=== PATIENT | male | born 1990 | race Caucasian/White ===

== ENCOUNTER 2020-04-11 20:29 | Emergency (ER) | payer BC, OTHER ==
--- NOTE | 2020-04-11 20:58 | ER Document Report ---
ED Medical Screen (RME) - General Chief Complaint: Shortness Of Breath Stated Complaint: SHORTNESS OF BREATH,CHEST PAIN Time Seen by Provider: 04/11/20 20:48 - HPI Notes: 04/11/20 20:56 29-year-old male presents to the emergency room with complaints of chest pain or shortness of breath that started approximately an hour and a half ago. Reports pain is substernal and to his left chest, reports he has had tightness for the last hour and a half but the sharp pain has lasted approximately 10 minutes and occurs intermittently. He was diagnosed with cardiomyopathy a month ago by the [place] non-smoker, no history of asthma. Denies any cardiac history with his mother or father. He reports it hurts to take a deep breath in. Has not tried any [id number] medications. Reports pain at rest. Denies any radiation of pain. Denies any fevers or chills. Denies any trauma to his chest. Patient denies being a smoker. Patient states he is not having any chest stabbing right now just experiencing the tightness in his chest I have greeted and performed a rapid initial assessment of this patient. A comprehensive ED assessment and evaluation of the patient, analysis of test results and completion of the medical decision making process will be conducted by additional ED providers. PHYSICAL EXAMINATION: GENERAL: Well-appearing, well-nourished and in no acute distress. HEAD: Atraumatic, normocephalic. EYES: Pupils equal round extraocular movements intact, conjunctiva are normal. NECK: Normal range of motion CV: s1, s2 regular. unable to reproduce chest pain LUNGS: No respiratory distress Musculoskeletal: Normal range of motion NEUROLOGICAL: Normal speech, normal gait. SKIN: Warm, Dry, normal turgor, no rashes or lesions noted. - Related Data Allergies/Adverse Reactions: No Known Allergies Allergy (Unverified 04/11/20 20:54) Physical Exam - Vital signs Vitals: Temp Pulse BP Pulse Ox 98.3 F 75 152/80 H 98 04/11/20 20:44 04/11/20 20:44 04/11/20 20:44 04/11/20 20:44 Course - Vital Signs Vital signs: Temp Pulse Resp BP Pulse Ox 98.3 F 75 152/80 H 98 04/11/20 20:44 04/11/20 20:44 04/11/20 20:44 04/11/20 20:44
[2020-04-11 21:27] LABS: ABSOLUTE BASOPHILS # (AUTO) 0.1 10^3/uL (0.0-0.2); ABSOLUTE EOSINOPHILS # (AUTO) 0.3 10^3/uL (0.0-0.6); ABSOLUTE LYMPHOCYTES (AUTO) 2.2 10^3/uL (0.5-4.7); ABSOLUTE MONOCYTES (AUTO) 0.7 10^3/uL (0.1-1.4); ABSOLUTE NEUT (AUTO) 4.9 10^3/uL (1.7-8.2); BASOPHILS % (AUTO) 0.9 % (0-2); EOSINOPHILS % (AUTO) 3.1 % (0-6); HEMATOCRIT 42.8 % (37.9-51.0); LYMPHOCYTES % (AUTO) 27.3 % (13-45); MEAN CORPUSCULAR HEMOGLOBIN 30.7 pg (27.0-33.4); MEAN CORPUSCULAR VOLUME 88 fl (80-97); MONOCYTES % (AUTO) 8.7 % (3-13); PLATELET COUNT 237 10^3/uL (150-450); RED BLOOD COUNT 4.87 10^6/uL (4.35-5.55); RED CELL DISTRIBUTION WIDTH 13.4 % (11.5-14.0); TOTAL CELLS COUNTED % (AUTO) 100 %; WHITE BLOOD COUNT 8.2 10^3/uL (4.0-10.5)
--- NOTE | 2020-04-11 21:32 | RADIOLOGY REPORT (SQ) ---
EXAM DESCRIPTION: XR KNEE 4 OR MORE VIEWS COMPLETED DATE/TME: 04/11/2020 20:21 CLINICAL HISTORY: 29 years Male chest pain, sob COMPARISON: None. FINDINGS: The cardiomediastinal silhouette appears unremarkable. No consolidating infiltrates or pleural effusions. No pneumothorax. IMPRESSION: No acute abnormality is identified. CLINICAL HISTORY: 29 years, Male, chest pain, sob COMPARISON: None. NUMBER OF VIEWS: TECHNIQUE: LIMITATIONS: None. FINDINGS: IMPRESSION: copyright 2010 [employer]- All Rights Reserved
[2020-04-11 21:44] LABS: ALBUMIN 4.8 g/dL (3.5-5.0); ALKALINE PHOSPHATASE 76 U/L (38-126); ANION GAP 8 (5-19); ASPARTATE AMINO TRANSFERASE 38 U/L (17-59); BILIRUBIN,DIRECT 0.2 mg/dL (0.0-0.4); BILIRUBIN,TOTAL 0.4 mg/dL (0.2-1.3); BLOOD UREA NITROGEN 20 mg/dL (7-20); CALCIUM 10.2 mg/dL (8.4-10.2); CARBON DIOXIDE 29 mmol/L (22-30); CHLORIDE 101 mmol/L (98-107); CREATINE KINASE 94 U/L (55-170); GLUCOSE 89 mg/dL (75-110); POTASSIUM 5.3 mmol/L (3.6-5.0); TOTAL PROTEIN 7.1 g/dL (6.3-8.2)
[2020-04-11 21:55] LABS: CREATINE KINASE MB 0.94 ng/mL (<4.55)
[2020-04-11 21:56] LABS: TROPONIN I < 0.012 ng/mL
--- NOTE | 2020-04-12 00:56 | EKG REPORT ---
SEVERITY:- NORMAL ECG - SINUS RHYTHM ST ELEV, PROBABLE NORMAL EARLY REPOL PATTERN : Confirmed by: Jace Newman 12-Apr-2020 00:55:46
--- NOTE | 2020-04-12 03:33 | ER Document Report ---
ED General - General Chief Complaint: Shortness Of Breath Stated Complaint: SHORTNESS OF BREATH,CHEST PAIN Time Seen by Provider: 04/11/20 20:48 Primary Care Provider: ANA BARROS MD [ACTIVE STAFF] - Follow up as needed Mode of Arrival: Ambulatory Information source: Patient Notes: Patient is an otherwise healthy 29-year-old male presenting to the emergency department with complaints of chest pain with shortness of breath. Patient reports symptoms started about an hour and a half prior to arrival. States he started getting sharp stabbing chest pains to the middle of his chest and left chest. He states this was also accompanied by a pressure on his chest. He reports at one point he became diaphoretic. He denied any nausea or vomiting. He reports associated shortness of breath. He reports recent diagnosis of cardiomyopathy but states he has not had any advice or follow-up on this. - Related Data Allergies/Adverse Reactions: No Known Allergies Allergy (Unverified 04/11/20 20:54) Home Medications: motrin Past Medical History - General Information source: Patient - Social History Smoking Status: Former Smoker - quit few days ago Chew tobacco use (# tins/day): No Frequency of alcohol use: Occasional Drug Abuse: None Family History: None Patient has homicidal ideation: No - Past Medical History Cardiac Medical History: Reports: Other - cardiomyopathy Review of Systems - Review of Systems Constitutional: See HPI EENT: No symptoms reported Cardiovascular: See HPI Respiratory: See HPI Gastrointestinal: No symptoms reported Genitourinary: No symptoms reported Male Genitourinary: No symptoms reported Musculoskeletal: No symptoms reported Skin: No symptoms reported Hematologic/Lymphatic: No symptoms reported Neurological/Psychological: No symptoms reported Physical Exam - Vital signs Vitals: Temp Pulse BP Pulse Ox 98.3 F 75 152/80 H 98 04/11/20 20:44 04/11/20 20:44 04/11/20 20:44 04/11/20 20:44 - Notes Notes: PHYSICAL EXAMINATION: GENERAL: Well-appearing, well-nourished and in no acute distress. HEAD: Atraumatic, normocephalic. EYES: Pupils equal round and reactive to light, extraocular movements intact, sclera anicteric, conjunctiva are normal. ENT: Nares patent, oropharynx clear without exudates. Moist mucous membranes. NECK: Normal range of motion, supple without lymphadenopathy LUNGS: Breath sounds clear to auscultation bilaterally and equal. No wheezes rales or rhonchi. HEART: Regular rate and rhythm without murmurs ABDOMEN: Soft, nontender, nondistended abdomen. No guarding, no rebound. No masses appreciated. Musculoskeletal: Normal range of motion, no pitting or edema. No cyanosis. NEUROLOGICAL: Cranial nerves grossly intact. Normal speech, normal gait. Normal sensory, motor exams PSYCH: Normal mood, normal affect. SKIN: Warm, Dry, normal turgor, no rashes or lesions noted. Course - Re-evaluation Re-evalutation: Presentation of chest pain in an otherwise well appearing patient. Low clinical suspicion for ACS given clinical history, exam, EKG without ST elevations or depressions in contigupus leads, and negative initial troponin. HEART score less than or equal to 3. PE also seems unlikely given clinical history, absence of tachycardia or dyspnea. Patient is PERC criteria negative. CXR without evidence of pneumothorax or pneumonia. No widened mediastinum. Aortic dissection also seems unlikely given history, symmetric pulses, CXR, and vitals. HEART Score: History 1 ECG 1 Age 0 Risk Factors 1 Troponin 0 Total: 3 Chest pain in a patient without evidence of cardiac or other serious etiology on workup today. I discussed with patient that, based on their age, risk factors and emergency department testing today, the likelihood that their symptoms are related to a heart attack is very low (estimated risk of heart attack or over the next 30 days of less than 1%). The patient demonstrates decision making capacity and has verbalized an understanding of these risks to me. Based on this, the patient has chosen to follow-up as an outpatient. I would like him to follow-up with Dr. Barros, our on-call accredited legal secretary due to the patient reporting a recent echocardiogram that showed cardiomyopathy. He states this [facility] the [facility] request. He states this was approximately 6 weeks ago and he has been getting the run around and has not been able to follow-up with a accredited legal secretary. Patient does not know any additional specifics regarding the diagnosis of cardiomyopathy on the echocardiogram. 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 He is in the process of getting his disability rating from the [facility] and the echocardiogram was apparently part of this work-up. Usual chest pain return precautions reviewed. The patient states understanding and agreement with this plan. 04/12/20 03:32 Repeat troponin was also negative. We also did a repeat EKG which was no acute change from initial EKG. Patient is chest pain-free. Spoke with on-call accredited legal secretary, Dr. Barros. He agrees to see patient on outpatient basis. - Vital Signs Vital signs: Temp Pulse Resp BP Pulse Ox 98.3 F 75 18 126/78 H 99 04/11/20 20:44 04/11/20 20:44 04/12/20 03:47 04/12/20 03:47 04/12/20 03:47 - Laboratory Result Diagrams: 04/11/20 21:15 04/11/20 21:15 Laboratory results interpreted by me: 04/11/20 21:15 Potassium 5.3 H ALT 54 H - Diagnostic Test Radiology reviewed: Image reviewed, Reports reviewed Radiology results interpreted by me: Chest X-Ray 04/11/20 20:55 IMPRESSION: No acute abnormality is identified. CLINICAL HISTORY: 29 years, Male, chest pain, sob COMPARISON: None. NUMBER OF VIEWS: TECHNIQUE: LIMITATIONS: None. FINDINGS: IMPRESSION: copyright 2010 [employer]- All Rights Reserved - EKG Interpretation by Me EKG shows normal: Sinus rhythm Rate: Normal Rhythm: NSR When compared to previous EKG there are: Previous EKG unavailable Additional EKG results interpreted by me: EKG showed ST elevations however this was not in multiple leads, EKG was repeated several hours later as we had no initial EKG on file. There is no acute change from EKG #1 to EKG #2. Likely early repolarization. Discharge - Discharge Clinical Impression: Chest pain Qualifiers: Chest pain type: unspecified Qualified Code(s): R07.9 - Chest pain, unspecified Condition: Stable Disposition: HOME, SELF-CARE Additional Instructions: Your work-up today was reassuring. Your EKGs and blood work were normal. There was no evidence of any acute conditions with your heart. I did call and speak with our on-call accredited legal secretary, Dr. Barros due to the fact that you told us you were recently diagnosed with cardiomyopathy by the [place]. This is something that you will need to follow-up on. Please get a copy of the echocardiogram from the diagnostic center that you had the test done at so that you can bring it to your appointment with Dr. Barros. Please call Dr. Barros's office tomorrow to schedule an appointment. Let them know you were seen in the emergency department and that we contacted and spoke with Dr. Barros this morning at 330. Return to the emergency department with any new or worsening symptoms. Referrals: ANA BARROS MD [ACTIVE STAFF] - Follow up as needed
[2020-04-12 03:53] VITALS: BP 126/78
--- NOTE | 2020-04-12 19:12 | EKG REPORT ---
SEVERITY:- NORMAL ECG - SINUS RHYTHM ST ELEV, PROBABLE NORMAL EARLY REPOL PATTERN : Confirmed by: Jace Newman 12-Apr-2020 19:12:27
== END 2020-04-12 03:53 | disposition home or self-care (01) ==
LOC: ER 20:29
DX: R06.02 Shortness of breath (principal); R07.9 Chest pain, unspecified
CPT/HCPCS: 36415; 71045; 80053; 82550; 82553; 84484; 85025; 85379; 93005; 93010; 99285

== ENCOUNTER → 2020-06-01 | Outpatient (CLI) | payer BC ==
--- NOTE | 2020-06-01 18:51 | XCELERA REPORT ---
[address] [address] Transthoracic Echocardiogram Report Name: RUBY ESTRELLA Age: 30 yrs Gender: Male : 1990 Patient Status: Outpatient Patient Location: Study Date: 06/01/2020 08:16 AM History: Chest pain Height: 70 in Weight: 176 lb BSA: 2.0 m2 Procedure: A complete two-dimensional transthoracic echocardiogram was performed (2D, M-mode, spectral and color flow Doppler). The study was technically adequate with some images being suboptimal in quality. Reason For Study: CP, INFECTIVE PERICARDITIS Ordering Physician: ANA BARROS Performed By: Ana Cifuentes Interpretation Summary Left ventricular systolic function is normal. The Ejection Fraction estimate is 55-60% The right ventricle is normal in size and function. There is a trace amount of mitral regurgitation There is no aortic valve stenosis There is a trace amount of tricuspid regurgitation Doppler findings do not suggest pulmonary hypertension. There is no pericardial effusion. MMode/2D Measurements & Calculations RVDd: 2.1 cm LVIDd: 4.8 cm FS: 28.6 % Ao root diam: 2.7 cm IVSd: 1.1 cm LVIDs: 3.4 cm EDV(Teich): 107.2 ml Ao root area: 5.7 cm2 LVPWd: 1.0 cm ESV(Teich): 48.2 ml EF(Teich): 55.1 % Doppler Measurements & Calculations MV E max michael: MV dec slope: Ao V2 max: LV V1 max P.2 cm/sec 381.7 cm/sec2 121.6 cm/sec 4.5 mmHg MV A max michael: MV dec time: 0.19 sec Ao max PG: LV V1 max: 50.0 cm/sec 5.9 mmHg 104.8 cm/sec MV E/A: 1.4 PA V2 max: TR max michael: 73.2 cm/sec 182.9 cm/sec PA max P.1 mmHgTR max P.4 mmHg Left Ventricle The left ventricle is normal in size. Left ventricular systolic function is normal. The Ejection Fraction estimate is 55-60%. Doppler measurements suggest normal left ventricular diastolic function. No regional wall motion abnormalities noted. Right Ventricle The right ventricle is normal in size and function. Atria The right atrium is normal. The left atrial size is normal. The interatrial septum is intact with no evidence for an atrial septal defect. There is no Doppler evidence for an interatrial shunt. Mitral Valve The mitral valve is grossly normal. There is no mitral valve stenosis. There is a trace amount of mitral regurgitation. Aortic Valve The aortic valve is normal in structure and function. The aortic valve is trileaflet. The aortic valve opens well. There is no aortic valve stenosis. No aortic regurgitation is present. Tricuspid Valve The tricuspid valve is normal in structure and function. There is no tricuspid stenosis. There is a trace amount of tricuspid regurgitation. Tricuspid regurgitation jet envelope not well defined to measure RV systolic pressure accurately. Doppler findings do not suggest pulmonary hypertension. Pulmonic Valve The pulmonic valve is normal in structure and function. There is no pulmonic valvular stenosis. There is no pulmonic valvular regurgitation. Great Vessels The aortic root is normal size. The inferior vena cava appeared normal and decreased > 50% with respiration (RAP 5-10 mmHg). Effusions There is no pericardial effusion. : ANA BARROS Anil
== END ==
LOC: SP 07:56
PROVIDERS: ATTEND Internal Medicine
DX: I30.1 Infective pericarditis (principal); R07.9 Chest pain, unspecified
CPT/HCPCS: 93306